=== PATIENT | male | born 1965 | race Caucasian/White ===

== ENCOUNTER 2024-03-30 18:20 | Emergency (ER) | payer BC, SELFPAY ==
[2024-03-30 18:36] VITALS: BP 178/108
[2024-03-30] MEDS: PERCOCET 5/325 1 TABLET PO (19:49)
--- NOTE | 2024-03-30 21:11 | ED.SKININJ ---
HPI-Injury
<Koko Bland PA-C - Last Filed: 03/30/24 21:56>
General
Chief Complaint: Skin Surface Trauma
Time Seen by Provider: 03/30/24 19:18
Travel History
Have you had any contact with someone who has COVID-19?: No
Do you have any symptoms of coronavirus? Fever > 100 degrees, chills, cough, shortness of breath, sore throat, loss of taste or smell, muscle aches, or headache?: No
History of Present Illness-Injury
Initial Injury comments:
Patient is a 59-year-old male with past medical history of GERD and prior tobacco use here today for evaluation after he lacerated his left third and fourth finger as well as his left hand with a chainsaw that occurred several hours prior to
arrival. He notes a mild amount of bleeding. He is able to move his fingers and has full sensation intact throughout. No injuries or pain noted elsewhere. Tetanus is up-to-date.
Past History
<Koko Bland PA-C - Last Filed: 03/30/24 21:56>
Past History
ED Past Medical History: None
ED Past Surgical History: None
Social History
Tobacco: Non-smoker
Alcohol: None
Personal:
Living: with family
Employment: Employed ([employer])
Review of Systems
<Koko Bland PA-C - Last Filed: 03/30/24 21:56>
Review of Systems
All Other Systems: ROS reviewed and negative except as documented in HPI and ROS
Phy Exam
<Koko Bland PA-C - Last Filed: 03/30/24 21:56>
Physical Exam
Physical Exam:
GENERAL: Alert , in no apparent distress
EYE: pupils equal and reactive
NECK: Supple, no significant adenopathy.
NEUROLOGICAL: Alert and oriented, no focal neuro deficits
SKIN: Warm and dry, skin intact. There is a long deep vertical linear laceration noted along the dorsal aspect of the left third finger, medial aspect, there is evidence of tendon involvement but no evidence of tendon tear, there is no evidence of
foreign body, there is a mild amount of active bleeding, there is full range of motion of the affected finger with intact sensation and tendon function intact to resistance, pulses 2+ throughout, there is a smaller superficial laceration noted along
the dorsal aspect of the left fourth finger at the level of the PIP joint, there is a small avulsion injury noted to the upper middle dorsum of the hand along the left third MCP joint
MUSCULOSKELETAL: No edema, well perfused.
PSYCH: Normal and appropriate interaction.
Course
<Koko Bland PA-C - Last Filed: 03/30/24 21:56>
Orders/Labs/Results
Orders:
Orders
03/30/24 18:59
Hand, Left 3 View [CR Hand - Left Min 3 Views] Urgent
Comment:
Reason For Exam: trauma, chain saw, laceration
03/30/24 19:45
Oxycodone/Acetaminophen [Percocet 5/325] 1 tablet PO NOW STA
03/30/24 19:46
Oxycodone/Acetaminophen [Percocet 5/325] 1 tablet PO NOW STA
03/30/24 20:58
CeFAZolin 1 GRAM [Ancef] 1 gram in 5 ml IV NOW
03/30/24 21:06
CeFAZolin SODIUM [Ancef] 1,000 mg .ROUTE .STK-MED ONE
03/30/24 21:11
CeFAZolin SODIUM [Ancef] 1,000 mg IV NOW STA
Vital Signs
Initial and Last Documented VS:
Initial Vital Signs
Temp Pulse Resp BP Pulse Ox
98.3 F 89 18 178/108 99
03/30/24 18:36 03/30/24 18:36 03/30/24 18:36 03/30/24 18:36 03/30/24 18:36
Last Documented Vital Signs
Temp Pulse Resp BP Pulse Ox
98.3 F 89 18 132/68 99
03/30/24 18:36 03/30/24 18:36 03/30/24 18:36 03/30/24 21:24 03/30/24 18:36
<Princess Grayson MD - Last Filed: 03/30/24 21:42>
Orders/Labs/Results
Orders:
Orders
03/30/24 18:59
Hand, Left 3 View [CR Hand - Left Min 3 Views] Urgent
Comment:
Reason For Exam: trauma, chain saw, laceration
03/30/24 19:45
Oxycodone/Acetaminophen [Percocet 5/325] 1 tablet PO NOW STA
03/30/24 19:46
Oxycodone/Acetaminophen [Percocet 5/325] 1 tablet PO NOW STA
03/30/24 20:58
CeFAZolin 1 GRAM [Ancef] 1 gram in 5 ml IV NOW
03/30/24 21:06
CeFAZolin SODIUM [Ancef] 1,000 mg .ROUTE .STK-MED ONE
03/30/24 21:11
CeFAZolin SODIUM [Ancef] 1,000 mg IV NOW STA
Vital Signs
Initial and Last Documented VS:
Initial Vital Signs
Temp Pulse Resp BP Pulse Ox
98.3 F 89 18 178/108 99
03/30/24 18:36 03/30/24 18:36 03/30/24 18:36 03/30/24 18:36 03/30/24 18:36
Last Documented Vital Signs
Temp Pulse Resp BP Pulse Ox
98.3 F 89 18 132/68 99
03/30/24 18:36 03/30/24 18:36 03/30/24 18:36 03/30/24 21:24 03/30/24 18:36
Procedures
<Koko Blnad PA-C - Last Filed: 03/30/24 21:56>
Laceration Closure
Left hand:
Status of Wound: dirty
Description of Wound Edges: ragged
Preparation: cleaned with saline
Anesthesia: 1% Lidocaine and Digital-Regional
Wound exploration: extensive cleaning of contaminated wound
Type of Closure: single layer closure (with 4 sutures to left third finger, loosely approximated, with 6 sutures to left fourth finger, with great wound approximation)
Skin Closure Material: 5-0 nylon
<Koko Bland PA-C - Last Filed: 03/30/24 21:56>
MDM/Problems Addressed
Differential Diagnosis Includes:
Patient is a 59-year-old male with past medical history of GERD and prior tobacco use here today for evaluation after he lacerated his left third and fourth finger as well as his left hand with a chainsaw that occurred several hours prior to
arrival. Overall, patient appears very well. He is neurovascularly intact. X-rays were obtained of the left hand which reveal no evidence of osseous injury. There is a probable foreign body in the dorsal soft tissues of the mid third digit.
Lacerations were copiously irrigated. An attempt was made to visualize a foreign body without success. The laceration of the left fourth finger was repaired with 6 sutures with good wound approximation. The laceration of the left third finger was
repaired loosely with 4 sutures. Hand was dressed with antibiotic ointment followed by Xeroform, gauze, and Kerlix. Case was discussed with orthopedics, Dr. Garcia. Patient will follow-up in office with Dr. Enio Saucedo tomorrow for an
appointment. Recommend keeping the dressing in place. Patient will be provided 1 g cefazolin IV x 1 and discharged with p.o. antibiotics with cephalexin. Tetanus status up-to-date. Recommend supportive measures and close follow-up. All
questions answered. Stable for discharge. Case discussed with attending, Dr. Grayson.
<Koko Bland PA-C - Last Filed: 03/30/24 21:56>
*Critical Care Note
Total Time (30-74mins, 75-104mins- exclusive of procedures): Not Applicable
ED Attending Note
<Koko Bland PA-C - Last Filed: 03/30/24 21:56>
-
Portions of this chart may have been created with voice recognition software.� Occasional wrong word or��sound alike� substitutions may have occurred due to the inherent limitations of voice recognition software.
<Princess Grayson MD - Last Filed: 03/30/24 21:42>
ED Attending Note
Patient seen and examined by attending physician: Yes
I performed the substantive portion of visit, reviewed & personally made and approve the management plan that is documented in note by myself or ABHAY.: Yes
ED Attending Note:
Patient has strong pulses in left upper extremity and good movement of fingers. There are no other areas of injury.
Discharge Plan
Departure
Patient Disposition: Home (Routine Discharge)
Date of Disposition: 03/30/24
Time of Disposition: 21:12
Patient with high blood pressure during this ER visit?: Yes
Condition: Fair
Covid-19: Not Applicable
Discharge Problem:
Laceration of finger of left hand with complication
Instructions: Wound Care (DC), Laceration Repair With Stitches (DC)
Prescriptions:
New
cephalexin 500 mg capsule
500 mg PO QID 7 Days Qty: 28 0RF
No Action
cetirizine 10 MG tablet
10 mg PO DAILY
ascorbic acid (vitamin C) [Vitamin C] 1,000 MG tablet
1,000 mg PO DAILY
aspirin [Leesa Chewable Aspirin] 81 MG tablet,chewable
81 mg PO DAILY
zinc 50 MG tablet
50 mg PO DAILY
rosuvastatin 20 MG tablet
20 mg PO DAILY
nx-ns-fwwt-FA-vit K-ginseng [[employer]] 1 EACH tablet
1 ea PO DAILY
mecobalamin (vitamin B12) [B12 Active] 1,000 MCG tablet,chewable
1,000 mcg PO DAILY
ibnie-[id number]-tvk-epa-fish oil 1 EACH capsule,delayed release(DR/EC)
3 ea PO DAILY
Cholecalciferol (Vitamin D3) [Vitamin D3] 50 MCG Capsule
100 mcg PO DAILY
fluticasone propionate 1 SPRAY spray,suspension
2 spray intranasal DAILY
Referrals:
Helder Pal DO [Family Provider] -
Enio Saucedo MD [Active] - Tomorrow
Activity Restrictions/Additional Instructions:
You were seen today for evaluation of a laceration to 2 of your fingers in your left hand.
We cleaned and irrigated your wounds and repaired them with sutures.
We are beginning antibiotics to take as directed.
Follow-up with the orthopedic surgeon, Dr. Saucedo, tomorrow for an in office appointment.
Return for any new, worsening, or concerning symptoms.
Interventions
Interventions:
*Risk Screen - Suicide Last Done: 03/30/24 18:36
*General Assessment Last Done: 03/30/24 18:36
*Neglect/Abuse Screening Last Done: 03/30/24 18:36
ED- Fall Risk Assessment Last Done: 03/30/24 21:24
*ED COVID-19 Vaccine History Last Done: 03/30/24 21:24
*Nursing Disposition Last Done: 03/30/24 21:24
ED-Skin Assessment Last Done: 03/30/24 19:39
Discharge Date and Time
Discharge Date/Time: 03/30/24 21:25
Print Language: BAHAMIAN
[2024-03-30] MEDS: ANCEF 1000 MG IV (21:12)
[2024-03-30 21:24] VITALS: BP 132/68
== END 2024-03-30 21:25 | disposition home or self-care (01) ==
LOC: EMR 18:20
PROVIDERS: EMERGENCY PHYSICIAN Emergency Medicine; FAMILY PHYSICIAN Family Medicine
DX: S61.422A Laceration with foreign body of left hand, initial encounter (principal); S61.215A Laceration without foreign body of left ring finger without damage to nail, initial encounter; S61.213A Laceration without foreign body of left middle finger without damage to nail, initial encounter; W29.3XXA Contact with powered garden and outdoor hand tools and machinery, initial encounter; R03.0 Elevated blood-pressure reading, without diagnosis of hypertension; K21.9 Gastro-esophageal reflux disease without esophagitis; Z79.82 Long term (current) use of aspirin; Z88.1 Allergy status to other antibiotic agents
CPT/HCPCS: 99284; 12041; 96374; 73130

== ENCOUNTER → 2024-03-31 07:49 | Outpatient (REF) | payer BC, SELFPAY | LOC: DHCBC/DCA 07:49 | PROVIDERS: ATTENDING PHYSICIAN Nurse Practitioner; FAMILY PHYSICIAN Family Medicine | DX: R07.89 Other chest pain (principal) | CPT/HCPCS: 78452; 93017; A9500 ==

== ENCOUNTER → 2024-10-26 15:28 | Outpatient (REF) | payer BC, SELFPAY | LOC: RAD 15:28 | PROVIDERS: ATTENDING PHYSICIAN Family Medicine; FAMILY PHYSICIAN Family Medicine | DX: J18.0 Bronchopneumonia, unspecified organism (principal) | CPT/HCPCS: 71046 ==